=== PATIENT | female | born 1940 | race Caucasian/White ===

== ENCOUNTER 2018-10-08 09:15 | Day surgery (SDC) | payer MEDICARE ==
[2018-10-08] VITALS (9 sets, daily range): BP systolic 126–154; BP diastolic 66–87
[~2018-10-08] VITALS: Ht 160 cm; Wt 59.2 kg
[~2018-10-08 09:15] MED LIST: ALEN70TA48 PO; AMIT-50 PO; ANAS1TAB10 PO; METH-233 PO; METO-539 PO; NORCO10T PO; OMEP-84 PO; SIMV20TA5 PO; TRIA0.2595 PO
[2018-10-08] MEDS ORDERED: sod bicarbonate 150mEq in D5W 1,150 ML IV ONE (09:40)
[2018-10-08] MEDS ORDERED: diphenhydrAMINE 25mg capsule PO PRN (09:40)
[2018-10-08 10:03] LABS: BASOPHILS % (AUTO) 0.5 % (0-1); EOSINOPHILS # (AUTO) 0.1 X10'3 (0-0.9); HEMATOCRIT 42.5 % (35.0-45.0); HEMOGLOBIN 14.1 g/dl (12.0-16.0); LYMPHOCYTES # (AUTO) 1.1 X10'3 (1.1-4.8); LYMPHOCYTES % (AUTO) 24.9 % (21-51); MEAN CORPUSCULAR HEMOGLOBIN 33.1 PG (27.0-31.0); MEAN CORPUSCULAR HGB CONC 33.2 % (33.0-36.5); MEAN CORPUSCULAR VOLUME 99.5 FL (78-98); MEAN PLATELET VOLUME 6.8 FL (7.4-10.4); MONOCYTES # (AUTO) 0.4 X10'3 (0-0.9); MONOCYTES % (AUTO) 8.9 % (2-12); NEUTROPHILS # (AUTO) 2.9 X10'3 (1.8-7.7); NEUTROPHILS % (AUTO) 63.7 % (42-75); PLATELET COUNT 205 X10'3 (140-440); RED BLOOD COUNT 4.27 X10'6 (4.20-5.60); WHITE BLOOD COUNT 4.5 X10'3 (4.5-11.0)
[2018-10-08 10:13] LABS: ALBUMIN 3.5 G/DL (3.4-5.0); ANION GAP 8 (8-16); BLOOD UREA NITROGEN 13 MG/DL (7-18); BUN/CREATININE RATIO 17.8 (6.6-38.0); CALCIUM 9.2 MG/DL (8.5-10.1); CHLORIDE 106 MMOL/L (99-107); CREATININE 0.73 MG/DL (0.40-0.90); GLUCOSE 98 MG/DL (70-104); MAGNESIUM 2.1 MG/DL (1.5-2.4); POTASSIUM 4.3 MMOL/L (3.5-5.1); SODIUM 142 MMOL/L (135-145); TOTAL CARBON DIOXIDE 27.7 MMOL/L (24-32); eGFR 77 ML/MIN
[2018-10-08 10:17] LABS: PARTIAL THROMBOPLASTIN TIME 28 SECONDS (22-32); PROTHROMBIN TIME 10.6 SECONDS (9.0-12.0)
[2018-10-08] MEDS ORDERED: fentaNYL/PF 50MCG/1 ML 2ML syringe ONE (10:55)
[2018-10-08] MEDS ORDERED: iohexol 350MG/ML 100ml bottle IV ONE (10:56)
[2018-10-08] MEDS ORDERED: iohexol 350 MG/ML 50ML vial IV ONE (10:56)
[2018-10-08] MEDS ORDERED: midazolam 2 mg/2 ml injection ONE (10:56)
[2018-10-08] MEDS ORDERED: LIDOcaine 1% (10mg/ml)w/preservative injection 20ml MDV ONE (10:56)
[2018-10-08] MEDS ORDERED: normal saline 1000ml 1,000 ML IV SCH (11:00)
[2018-10-08] MEDS ORDERED: CLON-528 PO (11:10)
[2018-10-08] MEDS ORDERED: LIDO700A32 PO (11:12)
[2018-10-08] MEDS ORDERED: ATOR20TA PO (11:13)
[2018-10-08] MEDS ORDERED: METO50TA7 PO (11:14)
[2018-10-08] MEDS ORDERED: ASPI-1264 PO (11:15)
[2018-10-08] MEDS ORDERED: PANT40TA4 PO (11:16)
[2018-10-08] MEDS ORDERED: NITR0.4T51 SL (11:17)
[2018-10-08] MEDS ORDERED: ketorolac tromethamine 15mg/ml inj. IV ONE (13:35)
== END 2018-10-08 15:30 | disposition home or self-care (01) ==
LOC: SSTAY O 09:15
PROVIDERS: ATTEND Internal Medicine Cardiovascular Disease
DX: I25.708 Atherosclerosis of coronary artery bypass graft(s), unspecified, with other forms of angina pectoris (principal); E78.5 Hyperlipidemia, unspecified; K21.9 Gastro-esophageal reflux disease without esophagitis; G89.29 Other chronic pain; M85.88 Other specified disorders of bone density and structure, other site; I10 Essential (primary) hypertension; Z72.89 Other problems related to lifestyle; Z92.21 Personal history of antineoplastic chemotherapy; Z90.710 Acquired absence of both cervix and uterus; Z95.1 Presence of aortocoronary bypass graft; Z98.82 Breast implant status; Z79.891 Long term (current) use of opiate analgesic; Z79.82 Long term (current) use of aspirin; Z85.3 Personal history of malignant neoplasm of breast; Z90.11 Acquired absence of right breast and nipple; Z88.2 Allergy status to sulfonamides; Z92.3 Personal history of irradiation; Z96.653 Presence of artificial knee joint, bilateral; Z98.890 Other specified postprocedural states; Z79.899 Other long term (current) drug therapy; Z82.49 Family history of ischemic heart disease and other diseases of the circulatory system
CPT/HCPCS: 36415; 80048; 83735; 85025; 85610; 85730; 93005; 93459; 99152; 99153; A6257; C1760; J1644; J1885; J2001; J2250; J3010; J7030; Q0163; Q9967; C1769; C1894